=== PATIENT | male | born 1935 | race Caucasian/White ===

== ENCOUNTER 2024-05-13 09:48 | Outpatient (REF) | payer MEDICARE, SELFPAY | END 2024-05-13 09:49 | disposition home or self-care (01) | LOC: HO.SH 09:48 | PROVIDERS: Visit Provider Internal Medicine | DX: Z01.118 Encounter for examination of ears and hearing with other abnormal findings (principal); H90.3 Sensorineural hearing loss, bilateral | CPT/HCPCS: 92557 ==

== ENCOUNTER 2024-05-13 10:31 | Outpatient (REF) | payer SELFPAY | END 2024-05-13 10:32 | disposition home or self-care (01) | LOC: HO.HAP 10:31 | PROVIDERS: PCP Internal Medicine; Visit Provider Internal Medicine | DX: Z46.1 Encounter for fitting and adjustment of hearing aid (principal); H90.3 Sensorineural hearing loss, bilateral | CPT/HCPCS: 92593 ==